=== PATIENT | female | born 1965 | race Two or more races ===

== ENCOUNTER 2017-12-25 08:12 | Emergency (ER) | payer OTHER ==
[~2017-12-25] VITALS: Ht 157.5 cm; Wt 73.5 kg
[2017-12-25] MEDS ORDERED: MULTIVITAMIN1 EAC2 PO (08:29)
[2017-12-25 08:51] LABS: HEMATOCRIT 36.2 % (36.0-46.0); HEMOGLOBIN 11.9 G/DL (11.9-15.5); MCH 29.7 PG (29.0-34.0); MCHC 32.9 G/DL (30.0-36.0); MCV 90.3 FL (83-99); PLATELET COUNT 256 K/uL (156-360); RBC DIS.WIDTH-CV 13.2 % (11.8-14.6); RBC DIS.WIDTH-SD 43.8 % (39-53); RED BLOOD COUNT 4.01 M/uL (3.80-5.20); WHITE BLOOD COUNT 8.1 K/uL (4.1-10.2)
[2017-12-25 08:59] LABS: CHLORIDE 105 mEq/L (99-109)
[2017-12-25 09:00] LABS: POTASSIUM 3.7 mEq/L (3.7-5.4); SODIUM 137 mEq/L (136-147)
[2017-12-25 09:01] LABS: GLUCOSE 90 mg/dL (70-99)
[2017-12-25 09:05] LABS: CREATININE 0.8 mg/dL (0.6-1.3); GFR ESTIMATE (CALCULATED) > 59 mL/min/
[2017-12-25 09:06] LABS: UREA NITROGEN (BUN) 19 mg/dL (9-23)
[2017-12-25 09:11] LABS: TROP-I INTERPRETATION NEGATIVE; TROPONIN-I < 0.01 ng/mL (0.0-0.30)
[2017-12-25 12:03] LABS: TROP-I INTERPRETATION NEGATIVE; TROPONIN-I < 0.01 ng/mL (0.0-0.30)
[2017-12-25 12:55] VITALS: BP 138/64
== END 2017-12-25 13:49 | disposition home or self-care (01) ==
LOC: EME 08:12
PROVIDERS: Physician Assistant
DX: R07.9 Chest pain, unspecified (principal); S46.912A Strain of unspecified muscle, fascia and tendon at shoulder and upper arm level, left arm, initial encounter; X50.0XXA Overexertion from strenuous movement or load, initial encounter; Y93.B9 Activity, other involving muscle strengthening exercises
CPT/HCPCS: 71046; 80048; 84484; 85027; 93005; 99281; 99285